=== PATIENT | female | born 1950 | race Caucasian/White ===

== ENCOUNTER 2016-12-29 14:12 | Emergency (ER) | payer MEDICAID ==
[~2016-12-29] VITALS: Ht 157.5 cm; Wt 51.5 kg
[~2016-12-29 14:12] MED LIST: ASPI325T32 PO; BENA40TA54 PO; HYD25 PO; LANT3I SC; METF500T4 PO; METO25TA4 PO; SIMV20TA2 PO; SYN75 PO
[2016-12-29 14:14] VITALS: Ht 157.5 cm; Wt 51.5 kg
[2016-12-29] MEDS ORDERED: NICARDipine HCL 30 MG CAPSULE PO ONE (15:00)
[2016-12-29] MEDS ORDERED: hydrALAzine 20 MG INJ IV ONE (15:00)
--- NOTE | 2016-12-29 15:22 | ERA ---
ER Documentation Chief Complaint Date/Time DATE: 12/29/16 TIME: 15:19 Chief Complaint HYPERTENSION HPI This is 66-year-old female with a history of hypertension is taking lisinopril 40 mg a day with hydrochlorothiazide 25 mg a day and is participating in a experimental hypertensive study at [facility]. She says she has been taking her blood pressure medication however she forgot to take her medication last night and today she felt like it was high. She took her pressure at home and it was 215/110. She denies any headache but says she has some palpitations and flushing of her skin with a little dizziness no blurry vision no focal neurological complaints such as numbness or weakness no chest pain. Again, she says she is compliant with her medication. ROS All systems reviewed and are negative except as per history of present illness. Medications Home Meds Active Scripts Metoprolol Tartrate* (Lopressor*) 25 Mg Tablet, 25 MG PO BID, #60 TAB Hold for SBP less than 110 mm Hg and/or heart rate less than 60/min. Prov:PIERO W[employer]EL [employer] 04/25/16 Hydrochlorothiazide* (Hydrochlorothiazide*) 25 Mg Tab, 25 MG PO DAILY, #30 TAB Prov:PIERO W[employer]EL [employer] 04/25/16 Reported Medications Insulin Glargine* (Lantus*) 100 Unit/Ml Soln, 10 UNIT SC HS 09/14/13 Aspirin* (Aspirin* EC) 325 Mg Tab, 325 MG PO DAILY 09/14/13 Simvastatin (Simvastatin) 20 Mg Tablet, 20 MG PO DAILY 09/14/13 Benazepril Hcl* (Lotensin*) 40 Mg Tablet, 40 MG PO DAILY 09/12/13 Metformin* (Glucophage*) 500 Mg Tab, 1000 MG PO BID 09/12/13 Levothyroxine Sodium* (Synthroid*) 75 Mcg Tablet, 75 MCG PO DAILY 09/12/13 Allergies Allergies: Coded Allergies: No Known Allergy (Unverified , 09/12/13) PMhx/Soc History of Surgery: No Anesthesia Reaction: No Hx Neurological Disorder: No Hx Respiratory Disorders: No Hx Cardiac Disorders: Yes (HTN) Hx Psychiatric Problems: No Hx Miscellaneous Medical Probl: No Hx Alcohol Use: No Hx Substance Use: No Hx Tobacco Use: No FmHx Family History: No coronary disease Physical Exam Vitals Vital Signs Date Time Temp Pulse Resp B/P Pulse Ox O2 Delivery O2 Flow Rate FiO2 12/29/16 16:02 98.2 82 18 161/80 99 Room Air 12/29/16 15:29 98.2 80 18 180/94 100 Room Air 12/29/16 14:14 98.2 118 18 245/115 100 Physical Exam Const: Well-developed, well-nourished Head: Atraumatic, normocephalic Eyes: Normal Conjunctiva, PERRLA, EOMI, normal sclera, no nystagmus ENT: Normal External Ears, Nose and Mouth, moist mucus membranes. Neck: Full range of motion. No meningismus, no lymphadenopathy. Resp: Clear to auscultation bilaterally, no wheezing, rhonchi, rales Cardio: Regular rate and rhythm, no murmurs, S1 S2 present Abd: Soft, non tender x 4, non distended. Normal bowel sounds, no guarding or rebound, no pulsitile abdominal masses or bruits Skin: No petechiae or rashes, no ecchymosis , no maculopapular rash Back: No midline or flank tenderness Ext: No cyanosis, or edema, FROM x 4, normal inspection, neurovascularly intact x 4 Neur: Awake and alert, STR 5/5 x 4, sensation intact x 4, no focal findings, cerebellum intact Psych: Normal Mood and Affect Result Diagram: 12/29/16 1520 12/29/16 1520 Results 24 hrs Laboratory Tests Test 12/29/16 15:20 White Blood Count 6.610^3/ul Red Blood Count 4.6110^6/ul Hemoglobin 13.5g/dl Hematocrit 39.9% Mean Corpuscular Volume 86.6fl Mean Corpuscular Hemoglobin 29.3pg Mean Corpuscular Hemoglobin Concent 33.8g/dl Red Cell Distribution Width 12.4% Platelet Count 82082^3/UL Mean Platelet Volume 10.4fl Neutrophils % 73.5% Lymphocytes % 16.3% Monocytes % 7.2% Eosinophils % 1.4% Basophils % 1.1% Nucleated Red Blood Cells % 0.0/100WBC Neutrophils # 4.810^3/ul Lymphocytes # 1.110^3/ul Monocytes # 0.510^3/ul Eosinophils # 0.110^3/ul Basophils # 0.110^3/ul Nucleated Red Blood Cells # 0.010^3/ul Sodium Level 133mmol/L Potassium Level 4.7mmol/L Chloride Level 95mmol/L Carbon Dioxide Level 26mmol/L Anion Gap 17 Blood Urea Nitrogen 16mg/dl Creatinine 0.65mg/dl Glucose Level 142mg/dl Calcium Level 9.6mg/dl Troponin I < 0.012ng/ml Current Medications Medications (Trade) Dose Ordered Sig/Tmay Route PRN Reason Start Time Stop Time Status Last Admin Dose Admin Nicardipine HCl (Cardene) 30 mg ONCE ONCE PO 12/29/16 15:00 12/29/16 15:01 DC 12/29/16 15:36 Hydralazine HCl (Apresoline) 10 mg ONCE ONCE IV 12/29/16 15:00 12/29/16 15:01 DC Procedures/MDM EKG: Rate/Rhythm: Atrial flutter with 3-1 block, heart rate 118 QRS, ST, QT: NORMAL [place], QRS, QT] Impression: Atrial flutter EKG] EKG: Rate/Rhythm: Normal Sinus Rhythm,NL intervals QRS, ST, QT: NORMAL [place], QRS, QT] Impression: NORMAL EKG Patient received Cardene p.o. blood pressures currently 161/80. The patient is asymptomatic. Patient has blood pressure monitor machine at home we will have her follow her blood pressures at home. She is not in atrial flutter. She is normal sinus rhythm currently on discharge home on her current medications Departure Diagnosis: Primary Impression: Hypertension Qualified Code: I10 - Essential hypertension Condition: Stable YOUNG BERGERON DO December 29, 2016 15:21
[2016-12-29 15:33] LABS: ADD SCAN DIFF NO
[2016-12-29 15:35] LABS: BASOPHIL # 0.1 10^3/ul (0.0-0.1); BASOPHILS % 1.1 % (0.0-2.0); EOSINOPHILS # 0.1 10^3/ul (0.0-0.5); EOSINOPHILS % 1.4 % (0.0-7.0); HEMATOCRIT 39.9 % (37.0-47.0); HEMOGLOBIN 13.5 g/dl (12.0-16.0); LYMPHOCYTES # 1.1 10^3/ul (0.8-2.9); LYMPHOCYTES % 16.3 % (15.0-51.0); MEAN CORPUSCULAR HEMOGLOBIN 29.3 pg (29.0-33.0); MEAN CORPUSCULAR HGB CONC 33.8 g/dl (32.0-37.0); MEAN CORPUSCULAR VOLUME 86.6 fl (82.0-101.0); MEAN PLATELET VOLUME 10.4 fl (7.4-10.4); MONOCYTE # 0.5 10^3/ul (0.3-0.9); MONOCYTES % 7.2 % (0.0-11.0); NEUTROPHIL # 4.8 10^3/ul (1.6-7.5); NEUTROPHILS % 73.5 % (39.0-77.0); PLATELET COUNT 257 10^3/UL (140-415); RED BLOOD COUNT 4.61 10^6/ul (4.20-5.40); RED CELL DISTRIBUTION WIDTH 12.4 % (11.5-14.5); WHITE BLOOD COUNT 6.6 10^3/ul (4.8-10.8)
[2016-12-29 15:49] LABS: CHLORIDE 95 mmol/L (97-110); POTASSIUM 4.7 mmol/L (3.5-5.1); SODIUM 133 mmol/L (135-144)
[2016-12-29 15:52] LABS: ANION GAP 17 (8-16); BLOOD UREA NITROGEN 16 mg/dl (7-20); CARBON DIOXIDE 26 mmol/L (21-31); CREATININE 0.65 mg/dl (0.44-1.00); GLUCOSE 142 mg/dl (70-220)
[2016-12-29 15:53] LABS: CALCIUM 9.6 mg/dl (8.4-10.2)
[2016-12-29 16:02] VITALS: BP 161/80; PULSE 82; RESP 18; TEMP 98.2
[2016-12-29 16:09] LABS: TROPONIN-I < 0.012 ng/ml (0.00-0.12)
[2016-12-29] MEDS ORDERED: LEVO88TA3 PO (16:31)
[2016-12-29] MEDS ORDERED: METF1000 PO (16:42)
[2016-12-29] MEDS ORDERED: LISI40TA9 PO (16:42)
== END 2016-12-29 16:37 | disposition home or self-care (01) ==
LOC: E/R 14:12
DX: I10 Essential (primary) hypertension (principal); E11.9 Type 2 diabetes mellitus without complications; Z79.4 Long term (current) use of insulin; Z79.84 Long term (current) use of oral hypoglycemic drugs; Z79.82 Long term (current) use of aspirin
CPT/HCPCS: 36415; 80048; 84484; 85025; 93005; Z7502; Z7610

== ENCOUNTER 2017-09-15 16:56 | Emergency (ER) | END 2017-09-15 20:30 | disposition home or self-care (01) ==

== ENCOUNTER 2017-09-29 05:28 | Emergency (ER) | END 2017-09-29 09:01 | disposition home or self-care (01) ==